=== PATIENT | male | born 2000 | race Caucasian/White ===

== ENCOUNTER 2018-04-26 01:15 | Emergency (ER) | payer OTHER ==
[~2018-04-26] VITALS: Ht 177.8 cm; Wt 75.0 kg
[2018-04-26 01:17] VITALS: BP 161/83
--- NOTE | 2018-04-26 01:30 | NUR ---
MD AWARE OF PT AND PRESENTING COMPLAINT, NO ORDERS AT THIS TIME.
--- NOTE | 2018-04-26 02:33 | NUR ---
PT TO ROOM AT THIS TIME, REMAINS AA AND TIMES 4, NEURO INTACT
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
== END 2018-04-26 03:01 | disposition home or self-care (01) ==
LOC: ED 02:45
DX: S06.0X0A Concussion without loss of consciousness, initial encounter (principal); W01.0XXA Fall on same level from slipping, tripping and stumbling without subsequent striking against object, initial encounter; Y93.89 Activity, other specified; Y92.410 Unspecified street and highway as the place of occurrence of the external cause; Y99.8 Other external cause status
CPT/HCPCS: 99281